=== PATIENT | female | born 1995 | race African-American/Black ===

== ENCOUNTER 2016-09-03 21:36 | Emergency (ER) | payer OTHER ==
[~2016-09-03] VITALS: Ht 157.5 cm; Wt 47.0 kg
[~2016-09-03 21:36] MED LIST: FLOV220A INH
[2016-09-03 21:37] VITALS: BP 128/74; PULSE 91; RESP 16; TEMP 98.2; O2SAT 100
--- NOTE | 2016-09-03 21:40 | PD ---
Physical Exam Date Seen by Provider: Sep 03, 2016 Time Seen by Provider: 21:39 Narrative 21 YOBF PELVIC PAIN FOR 2YRS SEEN AT LAST MONTH. WORSE NOW 2MONTHS. POS VAG D /C AND SPOTTING. NO F/C, NO VOMITING, POS DYSURIA LMP 08/22/16 H/O ASTHMA VSS AWAITING BED PLACEMENT Data Data Last Documented VS Vital Signs Date Time Temp Pulse Resp B/P Pulse Ox O2 Delivery O2 Flow Rate FiO2 09/03/16 21:37 98.2 91 16 128/74 100 Room Air [facility] Medical Record Reviewed: Yes Supervised Visit with MEDARDO: Yes Charan Low Sep 03, 2016 21:40
[2016-09-03] MEDS ORDERED: ALBU2TAB4 PO (22:35)
--- NOTE | 2016-09-03 22:41 | PD ---
HPI Chief Complaint: Abdominal Pain Time Seen by Provider: 22:28 Travel History International Travel<30 days: No Contact w/Intl Traveler<30days: No Traveled to known affect area: No History of Present Illness HPI The patient is a 21-year-old female who presents emergency department for abdominal pain. The patient notes a two-year history of intermittent abdominal pain is located in the pelvic region, nonradiating, sharp and crampy, but has been worse over the last several months. The patient states she has been evaluated by her journeyman level acoustic analyst and was evaluated at [facility] approximately one month ago. The patient states she had an ultrasound of the pelvis performed, is unsure of those results. The patient also had a pelvic examination and was discharged home on UTI medications and was administered an IM injection of medication at the hospital. The patient does complain of vaginal discharge which she describes his headache, slightly yellow , with a small tinge of blood. She also complains of mild dysuria. The patient is sexually active, one partner, and does wear condoms. The patient also states she takes oral contraceptive pills, last menstrual cycle was August 11, 2016. The patient does complain of mild nausea but denies any vomiting, diarrhea, or constipation. PFSH Past Medical History Asthma: Yes Respiratory: Yes (ASTHMA) ?: Not LMP: 08/22/16 Past Surgical History Surgical History: No Previous Surgery Social History Alcohol Use: Yes Tobacco Use: Yes Substance Use: No Allergies-Medications (Allergen,Severity, Reaction): Coded Allergies: No Known Allergies (Unverified , 09/03/16) Reported Meds & Prescriptions Reported Meds & Active Scripts Active Flovent Hfa (Fluticasone Propionate) 220 Mcg Aer 2 Puff INH DIRECTED PRN Reported Albuterol (Albuterol Sulfate) 2 Mg Tab 2 Mg PO TID Flovent Hfa (Fluticasone Propionate) 220 Mcg Aer 2 Puff INH BID Review of Systems Except as stated in HPI: all other systems reviewed are Neg General / Constitutional: No: Fever Gastrointestinal: Positive: Nausea, No: Vomiting, Diarrhea, Abdominal Pain Genitourinary: Positive: Dysuria, Hematuria, Pelvic Pain, Discharge, No: Vaginal Bleeding Skin: No Rash, No Itching Physical Exam Narrative GENERAL: Awake, alert, very pleasant 21-year-old female who appears her stated age and is in no acute respiratory distress. SKIN: Focused skin assessment warm/dry. HEAD: Atraumatic. Normocephalic. EYES: No injection or drainage. ENT: No nasal bleeding or discharge. Mucous membranes pink and moist. NECK: Trachea midline. No JVD. GASTROINTESTINAL: Abdomen soft, mild suprapubic tenderness. Negative Cevallos's. Negative McBurney's. No rebound tenderness. Back: Mild left CVA tenderness. Pelvic: The exam was performed in the presence of a female nurse. External examination was unremarkable. Speculum examination reveals scant thin clear discharge in the vaginal vault. Cervix is closed. No cervical motion tenderness or adnexal tenderness. MUSCULOSKELETAL: No obvious deformities. No clubbing. No cyanosis. No edema. NEUROLOGICAL: Awake and alert. No obvious cranial nerve deficits. Motor grossly within normal limits. Normal speech. PSYCHIATRIC: Appropriate mood and affect; insight and judgment normal. Data Data Last Documented VS Vital Signs Date Time Temp Pulse Resp B/P Pulse Ox O2 Delivery O2 Flow Rate FiO2 09/03/16 21:37 98.2 91 16 128/74 100 Room Air Orders Gc And Chlamydia Pcr (09/03/16 22:36) Wet Prep Profile (09/03/16 22:36) Urinalysis - C+S If Indicated (09/03/16 22:36) Ed Urine Pregnancytest Poc (09/03/16 22:36) Labs Laboratory Tests Test 09/03/16 09/03/16 22:50 22:58 Urine Color YELLOW Urine Turbidity HAZY Urine pH 6.5 Urine Specific [place] 1.027 Urine Protein TRACE mg/dL Urine Glucose (UA) NEG mg/dL Urine Ketones TRACE mg/dL Urine Occult Blood NEG Urine Nitrite NEG Urine Bilirubin NEG Urine Urobilinogen 2.0 MG/DL Urine Leukocyte Esterase TRACE Urine RBC 1 /hpf Urine WBC 6 /hpf Urine Squamous Epithelial 9 /hpf Cells Urine Transitional Epithelial <1 /hpf Cells Urine Bacteria RARE /hpf Urine Mucus FEW /lpf Microscopic Urinalysis Comment CULT NOT INDICATED Clue Cells (Wet Prep) PRESENT Vaginal Trichomonas (Wet Prep) NONE SEEN Vaginal Yeast (Wet Prep) NONE SEEN MDM Medical Decision Making Medical Screen Exam Complete: Yes Emergency Medical Condition: Yes Medical Record Reviewed: Yes Interpretation(s) Ultrasound that was performed on August 06, 2016 at [facility] revealed thickening of the lining of this endocervical canal. Otherwise negative. Laboratory Tests Test 09/03/16 09/03/16 22:50 22:58 Urine Color YELLOW Urine Turbidity HAZY Urine pH 6.5 Urine Specific [place] 1.027 Urine Protein TRACE mg/dL Urine Glucose (UA) NEG mg/dL Urine Ketones TRACE mg/dL Urine Occult Blood NEG Urine Nitrite NEG Urine Bilirubin NEG Urine Urobilinogen 2.0 MG/DL Urine Leukocyte Esterase TRACE Urine RBC 1 /hpf Urine WBC 6 /hpf Urine Squamous Epithelial 9 /hpf Cells Urine Transitional Epithelial <1 /hpf Cells Urine Bacteria RARE /hpf Urine Mucus FEW /lpf Microscopic Urinalysis Comment CULT NOT INDICATED Clue Cells (Wet Prep) PRESENT Vaginal Trichomonas (Wet Prep) NONE SEEN Vaginal Yeast (Wet Prep) NONE SEEN Differential Diagnosis Differential diagnosis includes vaginitis, cervicitis, PID, UTI, Trichomonas, bacterial vaginosis, chronic pelvic pain, endometriosis, . Narrative Course UA was sent to lab. Bedside UA test was obtained. The pelvic exam was completed in the presence of a female nurse. Pelvic exam was unremarkable, wet prep was sent to lab. Ultrasound was performed on August 06 revealed mild thickening of the endocervical canal, otherwise unremarkable. The patient's symptoms have been intermittent, chronic for 2 years, she is advised to follow- up with a journeyman level acoustic analyst. UA test was negative. Wet prep reveals clue cells, therefore, patient will be treated for bacterial vaginosis. UA reveals 6 white blood cells, otherwise unremarkable. The patient is advised to follow- up with her journeyman level acoustic analyst. Diagnosis Primary Impression: Bacterial vaginosis Additional Impression: Pelvic pain Patient Instructions: General Instructions Additional Instructions: Medications as directed. Follow-up with your primary physician. Return if symptoms worsen or progress. Med/Other Pt SpecificInfo: Prescription(s) given Scripts Metronidazole (Flagyl)500 Mg Ned104 Mg PO BID 7 Days Ref 0 Prov:Justin Thomas MD 09/03/16 Ibuprofen 600 Mg Nqw325 Mg PO Q6H PRN (Pain/Inflammation) #20 TAB Ref 0 Prov:Justin Thomas MD 09/03/16 Disposition: 01 DISCHARGE HOME Condition: Stable Justin Thomas MD Sep 03, 2016 22:41
[2016-09-03 23:17] LABS: BACTERIA, URINE RARE /hpf; BLOOD, URINE NEG (NEG); COMMENT (UR) CULT NOT INDICATED; CULTURE IF INDICATED CULT NOT INDICATED; GLUCOSE,URINE NEG (NEG); KETONE, URINE TRACE mg/dL (NEG); MUCUS URINE FEW /lpf (OCC); NITRITE,URINE NEG (NEG); PH, URINE 6.5 (5.0-8.5); SQUAMOUS EPITHELIAL CELL URINE 9 /hpf (0-5); TRANSITIONAL EPI CELLS, URINE <1 /hpf; URINE COLOR YELLOW (YELLW/STRAW)
[2016-09-03] MEDS ORDERED: METR-1 PO (23:30)
[2016-09-03] MEDS ORDERED: IBUP-232 PO (23:30)
[2016-09-03] MEDS ORDERED: IBUPROFEN 600 MG TAB PO ONE (23:45)
[2016-09-04 02:34] LABS: CHLAMYDIA PCR NOT DETECTED (NOT DETECT); NEISSERIA PCR NOT DETECTED (NOT DETECT)
== END 2016-09-03 23:47 | disposition home or self-care (01) ==
LOC: NEPA 21:36
DX: N76.0 Acute vaginitis (principal)
CPT/HCPCS: 81001; 84703; 87210; 87491; 87591; 99284